=== PATIENT | female | born 1950 | race Two or more races ===

== ENCOUNTER → 2022-08-07 | Outpatient (CLI) | payer OTHER | END | disposition home or self-care (01) | LOC: NUCLEAR 08:00 | PROVIDERS: ATTEND Internal Medicine Hematology & Oncology | DX: C80.0 Disseminated malignant neoplasm, unspecified (principal); C78.7 Secondary malignant neoplasm of liver and intrahepatic bile duct | CPT/HCPCS: 78815; A9552 ==

== ENCOUNTER 2022-08-16 15:13 | Inpatient (IN) | payer OTHER ==
[~2022-08-16] VITALS: Ht 157.5 cm; Wt 49.0 kg
[2022-08-16] MEDS ORDERED: LYSIPLEX PLUS178 ML (18:15)
[2022-08-16] MEDS ORDERED: CLONAZEPAM1 MG (18:15)
[2022-08-16] MEDS ORDERED: DAFLONEX-XL 11300 MG (18:15)
[2022-08-16] MEDS ORDERED: LOSARTAN POTASS50 MG (18:16)
[2022-08-16] MEDS ORDERED: GLIMEPIRIDE1 M1 (18:16)
[2022-08-16] MEDS ORDERED: SIMVASTATIN40 MG (18:16)
[2022-08-16] MEDS ORDERED: B-121000 MC1 (18:16)
[2022-08-16] MEDS ORDERED: CIPROFLOXACIN500 MG (18:16)
[2022-08-16] MEDS ORDERED: NAPROXEN500 MG (18:16)
[2022-08-16] MEDS ORDERED: FOLIC ACID1 MG (18:16)
[2022-08-16] MEDS ORDERED: TRAMADOL HCL50 MG (18:16)
[2022-08-16] MEDS ORDERED: DOXAZOSIN MESYLA2 MG (18:16)
[2022-08-16] MEDS ORDERED: PIOGLITAZONE HC30 MG (18:16)
[2022-08-16] MEDS ORDERED: VITAMIN D3250 MCG (18:17)
== END 2022-08-20 04:59 | disposition expired | DRG 435 ==
LOC: MEDJ 15:13
PROVIDERS: ADMIT Internal Medicine Hematology & Oncology; ATTEND Internal Medicine Hematology & Oncology
DX: C25.0 Malignant neoplasm of head of pancreas (principal); J96.01 Acute respiratory failure with hypoxia; C78.00 Secondary malignant neoplasm of unspecified lung; C78.7 Secondary malignant neoplasm of liver and intrahepatic bile duct; J90 Pleural effusion, not elsewhere classified; N39.0 Urinary tract infection, site not specified; E46 Unspecified protein-calorie malnutrition; G89.3 Neoplasm related pain (acute) (chronic); E86.0 Dehydration; I10 Essential (primary) hypertension; E11.649 Type 2 diabetes mellitus with hypoglycemia without coma; Z79.4 Long term (current) use of insulin
CPT/HCPCS: 240